=== PATIENT | male | born 1990 | race Caucasian/White ===

== ENCOUNTER 2017-10-31 15:50 | Emergency (ER) | payer MEDICAID | END 2017-10-31 18:36 | disposition home or self-care (01) | LOC: D.ER 15:50 | DX: S93.602A Unspecified sprain of left foot, initial encounter (principal); X58.XXXA Exposure to other specified factors, initial encounter; Y93.39 Activity, other involving climbing, rappelling and jumping off; Y92.019 Unspecified place in single-family (private) house as the place of occurrence of the external cause ==